=== PATIENT | female | born 1975 | race Caucasian/White ===

== ENCOUNTER → 2023-11-22 08:42 | Outpatient (REF) | payer BC, SELFPAY | LOC: WDC 08:42 | PROVIDERS: ATTENDING PHYSICIAN Internal Medicine | DX: Z12.31 Encounter for screening mammogram for malignant neoplasm of breast (principal) | CPT/HCPCS: 77063; 77067 ==

== ENCOUNTER → 2024-04-25 11:06 | Outpatient (REF) | payer BC, SELFPAY | LOC: HWRAD 11:06 | PROVIDERS: ATTENDING PHYSICIAN Nurse Practitioner | DX: M25.812 Other specified joint disorders, left shoulder (principal) | CPT/HCPCS: 70360; 72072; 76536 ==

== ENCOUNTER → 2024-06-18 08:28 | Outpatient (REF) | payer BC, SELFPAY | LOC: HWRAD 08:28 | PROVIDERS: ATTENDING PHYSICIAN Nurse Practitioner; FAMILY PHYSICIAN Internal Medicine | DX: M25.812 Other specified joint disorders, left shoulder (principal) | CPT/HCPCS: 70491; Q9967 ==

== ENCOUNTER → 2024-10-31 09:13 | Outpatient (REF) | payer BC, SELFPAY | LOC: WDC 09:13 | PROVIDERS: ATTENDING PHYSICIAN Nurse Practitioner Adult Health; FAMILY PHYSICIAN Nurse Practitioner | DX: N63.20 Unspecified lump in the left breast, unspecified quadrant (principal) | CPT/HCPCS: 76642; 77062; 77066 ==

== ENCOUNTER → 2024-12-23 12:41 | Outpatient (REF) | payer BC, SELFPAY | LOC: CLAB 12:41 | PROVIDERS: ATTENDING PHYSICIAN Surgery | DX: N63.21 Unspecified lump in the left breast, upper outer quadrant (principal) | CPT/HCPCS: 88305 ==

== ENCOUNTER 2025-09-07 06:31 | Day surgery (SDC) | payer BC, SELFPAY | END 2025-09-07 14:16 | disposition home or self-care (01) | LOC: GI 06:31 | PROVIDERS: ATTENDING PHYSICIAN Internal Medicine | DX: R12 Heartburn (principal); K44.9 Diaphragmatic hernia without obstruction or gangrene; R11.0 Nausea; K21.00 Gastro-esophageal reflux disease with esophagitis, without bleeding; K31.89 Other diseases of stomach and duodenum; K29.50 Unspecified chronic gastritis without bleeding; R89.7 Abnormal histological findings in specimens from other organs, systems and tissues | CPT/HCPCS: 43239; 88305; 88342 ==